=== PATIENT | female | born 2000 | race Caucasian/White ===

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

== ENCOUNTER 2021-06-19 01:32 | Emergency (ER) | payer OTHER ==
[2021-06-19 01:45] VITALS: BP 118/70; PULSE 80; TEMP 98.7; BMI 20.2
== END 2021-06-19 02:02 | disposition home or self-care (01) ==
LOC: FER 01:32
DX: R59.0 Localized enlarged lymph nodes (principal)
CPT/HCPCS: 99281-25

== ENCOUNTER 2022-02-01 20:12 | Emergency (ER) | payer OTHER ==
[2022-02-01 20:36] VITALS: BP 110/54; PULSE 74; TEMP 98.5; BMI 26.5
== END 2022-02-01 20:50 | disposition home or self-care (01) ==
LOC: FER 20:12
DX: S60.452A Superficial foreign body of right middle finger, initial encounter (principal); W26.8XXA Contact with other sharp object(s), not elsewhere classified, initial encounter
CPT/HCPCS: 99281-25

== ENCOUNTER 2022-03-17 16:01 | Emergency (ER) | payer OTHER ==
[2022-03-17 16:20] VITALS: BP 114/72; PULSE 78; TEMP 99.2; BMI 27.4
[2022-03-17] MEDS ORDERED: MECLIZINE HCL 25 MG TABLET (FP) PO ONE (16:29)
[2022-03-17] MEDS ORDERED: ACETAMINOPHEN 325 MG TABLET (FP) PO ONE (16:31)
[2022-03-17] MEDS ORDERED: ACETAMINOPHEN 325 MG TABLET (FP) ONE (16:46)
[2022-03-17] MEDS ORDERED: MECLIZINE HCL 25 MG TABLET (FP) ONE (16:46)
== END 2022-03-17 17:12 | disposition home or self-care (01) ==
LOC: FER 16:01
DX: S09.90XA Unspecified injury of head, initial encounter (principal); H81.10 Benign paroxysmal vertigo, unspecified ear; W22.09XA Striking against other stationary object, initial encounter
CPT/HCPCS: 84703; 99283-25

== ENCOUNTER 2023-04-11 21:58 | Emergency (ER) | payer OTHER ==
[2023-04-11] MEDS ORDERED: SODIUM CHLORIDE 1,000 ML IV ONE (22:02)
[2023-04-11 22:04] VITALS: BP 135/76; PULSE 70; RESP 16; TEMP 99.2; BMI 32.0
[2023-04-11 22:35] LABS: HEMATOCRIT 44.9 % (32.4-45.2); MCH 27.7 pg (25.7-33.7); MCHC 33.3 g/dl (32.0-36.0); MEAN CELL VOLUME 83.1 fl (80-96); MEAN PLT VOLUME 8.8 fl (7.5-11.1); PLATELET COUNT 305.8 10^3/uL (134-434); RDW 14.6 % (11.6-15.6); WHITE BLOOD COUNT 9.2 10^3/uL (4.0-10.8)
== END 2023-04-11 23:15 | disposition home or self-care (01) ==
LOC: FER 21:58
PROC: 3E0337Z Introduction of Electrolytic and Water Balance Substance into Peripheral Vein, Percutaneous Approach (ICD-10-PCS; principal; 2023-04-11)
DX: N94.6 Dysmenorrhea, unspecified (principal); R42 Dizziness and giddiness
CPT/HCPCS: 36415; 84703; 85027; 99284-25